=== PATIENT | male | born 1965 | race Caucasian/White ===

== ENCOUNTER 2019-11-26 19:11 | Observation (INO) ==
[2019-11-26 20:10] LABS: Basophils % 0.2 %; Eosinophils # 0.2 K/mcL (0.0-0.6); Eosinophils % 1.9 %; Hematocrit 40.7 % (37.5-50.1); Hemoglobin 13.3 g/dL (12.9-16.9); Immature Granulocytes % 0.5 % (0-4); Lymphocytes # 1.3 K/mcL (0.6-4.6); Lymphocytes % 12.4 %; Mean Corpuscular HGB Conc 32.7 g/dL (31.6-35.5); Mean Corpuscular Hemoglobin 30.9 pg (28.0-33.3); Mean Corpuscular Volume 94.4 fL (83.0-100.0); Mean Platelet Volume 9.3 fL (9.4-12.4); Monocytes # 1.1 K/mcL (0.0-1.3); Monocytes % 9.9 %; Neutrophils # 8.1 K/mcL (1.6-8.9); Platelet Count 209 K/mcL (140-400); Red Blood Count 4.31 M/mcL (4.19-5.50); Red Cell Distribution Width 12.3 % (11.5-14.5); Segmented Neutrophils % 75.1 %; White Blood Count 10.8 K/mcL (4.3-11.1)
[2019-11-26 20:14] LABS: INR 1.2; Prothrombin Time 13.1 Seconds (9.4-12.1)
[2019-11-26 20:16] LABS: Activated Partial Thrombo Time 27.2 Seconds (26.0-36.0)
[2019-11-26 20:29] LABS: BUN/Creatinine Ratio 12 (6-26); Blood Urea Nitrogen 11 mg/dL (6-20); Calcium 8.9 mg/dL (8.6-10.3); Carbon Dioxide 30 mEq/L (23-29); Chloride 99 mEq/L (98-107); Glucose 153 mg/dL (70-105); Osmolality,Calculated 284 (280-300); Potassium 3.9 mEq/L (3.5-5.1); Sodium 136 mEq/L (136-145); eGFR For African Americans > 60 (> 60); eGFR For Non-African Americans > 60 (> 60)
[2019-11-26] MEDS ORDERED: *HR* Heparin 5,000 UNIT/ML VIAL IVP ONE (21:10)
[2019-11-26] MEDS ORDERED: *HR* Heparin 5,000 UNIT/ML VIAL IVP PRN ×2 (21:10)
[2019-11-26 21:29] LABS: Hematocrit 39.9 % (37.5-50.1); Hemoglobin 13.1 g/dL (12.9-16.9); Mean Corpuscular HGB Conc 32.8 g/dL (31.6-35.5); Mean Corpuscular Hemoglobin 31.3 pg (28.0-33.3); Mean Corpuscular Volume 95.2 fL (83.0-100.0); Mean Platelet Volume 9.4 fL (9.4-12.4); Platelet Count 206 K/mcL (140-400); Red Blood Count 4.19 M/mcL (4.19-5.50); Red Cell Distribution Width 12.3 % (11.5-14.5); White Blood Count 11.4 K/mcL (4.3-11.1)
[2019-11-26 21:31] LABS: Heparin anti-factor XA UFH < 0.04 IU/mL (0.30-0.70)
[2019-11-26 21:32] LABS: INR 1.1
[2019-11-26] MEDS: Heparin 25,000 UNIT/250 ML D5W 25,000 UNIT/250 ML IV.SOLN IVC SCH (23:54)
[2019-11-27] MEDS ORDERED: Ondansetron 4 MG/2 ML VIAL IVP PRN (00:46)
[2019-11-27] MEDS ORDERED: Naloxone 0.4 MG/ML INJ IVP PRN (00:46)
[2019-11-27] MEDS: Acetaminophen 325 MG TABLET PO PRN ×3 (01:29→18:49)
[2019-11-27 02:50] LABS: Basophils % 0.3 %; Eosinophils # 0.5 K/mcL (0.0-0.6); Hematocrit 39.3 % (37.5-50.1); Hemoglobin 13.1 g/dL (12.9-16.9); Immature Granulocytes % 0.2 % (0-4); Lymphocytes # 2.9 K/mcL (0.6-4.6); Lymphocytes % 23.7 %; Mean Corpuscular HGB Conc 33.3 g/dL (31.6-35.5); Mean Corpuscular Hemoglobin 31.8 pg (28.0-33.3); Mean Corpuscular Volume 95.4 fL (83.0-100.0); Mean Platelet Volume 9.7 fL (9.4-12.4); Monocytes # 1.2 K/mcL (0.0-1.3); Monocytes % 10.1 %; Neutrophils # 7.4 K/mcL (1.6-8.9); Platelet Count 203 K/mcL (140-400); Red Blood Count 4.12 M/mcL (4.19-5.50); Red Cell Distribution Width 12.5 % (11.5-14.5); Segmented Neutrophils % 61.7 %
[2019-11-27 03:09] LABS: BUN/Creatinine Ratio 13 (6-26); Blood Urea Nitrogen 12 mg/dL (6-20); Carbon Dioxide 31 mEq/L (23-29); Chloride 99 mEq/L (98-107); Chol/HDL Ratio 4.7 (0-4.9); Cholesterol 136 mg/dL (< 200); Glucose 149 mg/dL (70-105); HDL Cholesterol 29 mg/dL (40-59); LDL Cholesterol,Calculated 96 mg/dL (0-99); Osmolality,Calculated 285 (280-300); Potassium 3.7 mEq/L (3.5-5.1); Sodium 136 mEq/L (136-145); Triglycerides 55 mg/dL (< 150); eGFR For African Americans > 60 (> 60); eGFR For Non-African Americans > 60 (> 60)
[2019-11-27 03:10] LABS: Troponin I < 0.03 ng/mL (< 0.04)
[2019-11-27] MEDS: Pregabalin 75 MG CAPSULE PO PRN ×2 (09:21→20:40)
[2019-11-27] MEDS: Methadone Oral Concentrate 50 MG/5 ML UDC PO SCH (10:10)
[2019-11-27] MEDS: Heparin 25,000 UNIT/250 ML D5W 25,000 UNIT/250 ML IV.SOLN IVC SCH (19:07)
[2019-11-27] MEDS ORDERED: Methadone Oral Concentrate 50 MG/5 ML UDC PO SCH (21:00)
[2019-11-28 02:50] LABS: Basophils % 0.4 %; Eosinophils # 0.4 K/mcL (0.0-0.6); Hematocrit 38.9 % (37.5-50.1); Hemoglobin 12.7 g/dL (12.9-16.9); Immature Granulocytes % 0.2 % (0-4); Lymphocytes # 1.6 K/mcL (0.6-4.6); Lymphocytes % 16.6 %; Mean Corpuscular HGB Conc 32.6 g/dL (31.6-35.5); Mean Corpuscular Hemoglobin 31.8 pg (28.0-33.3); Mean Corpuscular Volume 97.5 fL (83.0-100.0); Mean Platelet Volume 9.7 fL (9.4-12.4); Monocytes % 10.4 %; Neutrophils # 6.8 K/mcL (1.6-8.9); Platelet Count 231 K/mcL (140-400); Red Blood Count 3.99 M/mcL (4.19-5.50); Red Cell Distribution Width 12.4 % (11.5-14.5); Segmented Neutrophils % 68.4 %; White Blood Count 9.9 K/mcL (4.3-11.1)
[2019-11-28 03:11] LABS: BUN/Creatinine Ratio 15 (6-26); Blood Urea Nitrogen 14 mg/dL (6-20); Carbon Dioxide 35 mEq/L (23-29); Chloride 98 mEq/L (98-107); Glucose 94 mg/dL (70-105); Osmolality,Calculated 286 (280-300); Potassium 3.9 mEq/L (3.5-5.1); Sodium 138 mEq/L (136-145); eGFR For African Americans > 60 (> 60); eGFR For Non-African Americans > 60 (> 60)
[2019-11-28] MEDS: Methadone Oral Concentrate 50 MG/5 ML UDC PO SCH (09:08)
[2019-11-28] MEDS: Acetaminophen 325 MG TABLET PO PRN ×2 (09:09→16:32)
[2019-11-28] MEDS: Pregabalin 75 MG CAPSULE PO PRN (09:10)
[2019-11-28 10:22] VITALS: BP 113/70
[2019-11-28] MEDS ORDERED: *HR* Rivaroxaban 15 MG TABLET PO SCH ×2 (13:15)
== END 2019-11-28 16:36 | disposition home or self-care (01) ==
LOC: EMEROOARM 19:11 → 3ANU 19:11 → SUATTDRO 21:56 → 3ANU 11-27 00:03
PROVIDERS: ADMIT Internal Medicine; ATTEND Internal Medicine